=== PATIENT | female | born 1970 | race Caucasian/White ===

== ENCOUNTER 2016-08-13 12:18 | Day surgery (SDC) | payer OTHER ==
[~2016-08-13] VITALS: Ht 162.6 cm; Wt 116.6 kg
[~2016-08-13 12:18] MED LIST: FLUT16SP NS; FURO40TA4 PO; HYDR-4003 PO; KEN1O TOP; METH-313 PO; POTA10CA42 PO; Sodium Chloride LOK Flush 10 mL Syringe IV PRN; fentaNYL-PF 50 mCg/mL 2 mL Inj IVPUSH PRN
[2016-08-13 12:47] VITALS: BP 118/74; PULSE 80; RESP 16; O2SAT 99
[2016-08-13] MEDS: 0.9% Sodium Chloride 1,000 ML IV PRN ×2 (12:59→13:22)
[2016-08-13 13:43] VITALS: BP 118/77; PULSE 81; RESP 14; O2SAT 96
[2016-08-13 13:48] VITALS: BP 116/77; PULSE 80; RESP 14; O2SAT 96
--- NOTE | 2016-08-13 13:58 | ENDO ---
[address] [address] ENDOSCOPY PROCEDURE PATIENT: YULISSA THURSTON : 1970 MR#: [id number] ADMIT: 08/13/2016 JOB ID: [id number] DATE: 08/13/2016 PREPROCEDURAL DIAGNOSIS: Recurrent reflex after previous Estefania fundoplication. POSTPROCEDURAL DIAGNOSIS: Recurrent reflex after previous Estefania fundoplication. PROCEDURE PERFORMED: Upper endoscopy with biopsies. SURGEON: Shruthi Ochoa MD INSTRUMENT: Olympus GIF H 190. MEDICATIONS: Versed 5 mg, fentanyl 100 mcg. FINDINGS: 1. There was a small polyp in the distal esophagus. 2. Intact Estefania fundoplication. 3. There was a mildly feline appearance to the contractions of the esophagus and therefore a midesophageal biopsy was taken. The patient experienced pain at the moment of this biopsy, suggestive of hypersensitive esophagus. DESCRIPTION OF PROCEDURE: The patient was brought to the procedure suite and placed in left lateral decubitus position. Moderate anesthesia was induced and a bite block was placed after performance of preprocedural pause. The scope was advanced into the esophagus. The entire esophagus appeared essentially normal, with a mildly feline appearance to the contractions. The squamocolumnar junction was normal. One centimeter above the squamocolumnar junction was a small polyp in the distal esophagus which was removed with cold forceps. The endoscope was advanced in the stomach, which was entirely normal, without masses, strictures, or polyps. Retroflexed examination of the gastroesophageal junction revealed a Hill grade 1 flap valve with an intact Estefania fundoplication. The endoscope was advanced through the pylorus, into the duodenum, to the 3rd portion, which appeared normal. The endoscope was removed. A midesophageal biopsy was performed and the patient grimaced during this biopsy. The endoscope was removed. The patient tolerated the procedure well. COMPLICATIONS: None. SPECIMENS: 1. Polyp in distal esophagus. 2. Mid esophagus random biopsy.
--- NOTE | 2016-08-14 13:23 | PATH ---
SURGICAL PATHOLOGY Attending Physician:Shruthi Ochoa MD CASE STATUS: Signed Out PATIENT NAME: YULISSA THURSTON PID: [id number] : 1970 DATE COLLECTED:08/13/2016 19:32 SPECIMEN: 1: Esophagus, Biopsy 2: Esophagus, Biopsy CLINICAL HISTORY: 1). POLYP IN DISTAL ESOPHAGUS 2). MID ESOPHAGUS BIOPSY FINAL DIAGNOSIS: 1.POLYP IN DISTAL ESOPHAGUS: SQUAMOUS PAPILLOMA, EXOPHYTIC TYPE, NEGATIVE FOR SIGNIFICANT ATYPIA. 2.MID ESOPHAGUS BIOPSY: CHANGES CONSISTENT WITH EOSINOPHILIC ESOPHAGITIS (EOSINOPHILS NUMBER GREATER THAN 75 PER HIGH-POWERED FIELD). Negative for dysplasia and malignancy. ICD10 K20.0 GROSS DESCRIPTION: Received are two formalin-filled containers, both labeled with the patient' s name: 1. Received in formalin, labeled with the patient' s name and "polyp in distal esophagus", is one fragment of padilla, soft tissue measuring 0.1 x 0.1 x 0.1 cm. The fragment is totally submitted in cassette 1A. 2. Received in formalin, labeled with the patient' s name and "mid esophagus", is one fragment of padilla, soft tissue measuring 0.1 x 0.1 x 0.1 cm. The fragment is totally submitted in cassette 2A. ([id number]) MICRO DESCRIPTION: See diagnosis. ICD-9 CODES: CPT CODES: 1: 97339 2: 15156 Electronically Signed Out Marcial Comer MD [facility] Pathology [facility] [address], [place] [address] Technical component performed at [facility], [facility] [address], [address]
== END 2016-08-13 23:59 | disposition home or self-care (01) ==
LOC: END 12:18
PROVIDERS: ATTEND Surgery
DX: K20.0 Eosinophilic esophagitis (principal); D13.0 Benign neoplasm of esophagus; K21.9 Gastro-esophageal reflux disease without esophagitis; E78.2 Mixed hyperlipidemia; F32.9 Major depressive disorder, single episode, unspecified; M54.5 Low back pain; R60.0 Localized edema; E66.01 Morbid (severe) obesity due to excess calories; Z68.41 Body mass index [BMI] 40.0-44.9, adult; Z98.890 Other specified postprocedural states
CPT/HCPCS: 43239; G0500; J2250; J3010; J7030